=== PATIENT | male | born 1990 | race Caucasian/White ===

== ENCOUNTER 2019-03-04 20:59 | Emergency (ER) | payer OTHER ==
[~2019-03-04] VITALS: Ht 172.7 cm; Wt 81.6 kg
[2019-03-04 21:37] LABS: ABSOLUTE BASOPHILS 0.1 thou/uL (0.0-0.2); ABSOLUTE MONOCYTES 0.9 thou/uL (0.0-1.2); ABSOLUTE NEUTROPHILS 8.3 thou/uL (1.6-8.1); BASOPHILS 0.5 %; EOSINOPHILS 0.3 %; HEMATOCRIT 48.3 % (42.0-52.0); HEMOGLOBIN 16.6 gm/dL (14.0-18.0); LYMPHOCYTES 17.6 %; MCH 29.3 pg (26.0-34.0); MCHC 34.3 g/dL (28.0-37.0); MCV 85.5 fL (80.0-100.0); MONOCYTES 7.9 %; MPV 7.6 fl. (7.2-11.1); NUCLEATED RBCS 0 /100WBC; PLATELET COUNT* 293 thou/uL (150-400); POLYS 73.7 %; RBC 5.65 mil/uL (4.50-6.00); RDW-CV 13.3 % (10.5-14.5); WBC 11.3 thou/uL (4.0-11.0)
[2019-03-04 21:45] LABS: CALCIUM 9.9 mg/dL (8.5-10.1); POTASSIUM 3.4 mmol/L (3.5-5.1)
[2019-03-04 21:50] LABS: ALBUMIN 4.1 g/dL (3.4-5.0); TOTAL BILIRUBIN 1.1 mg/dL (<0.1-1.0); TOTAL PROTEIN 8.5 g/dL (6.4-8.2)
[2019-03-04 22:18] LABS: URINE BILIRUBIN NEGATIVE (Negative); URINE BLOOD NEGATIVE (Negative); URINE CLARITY CLEAR; URINE COLOR YELLOW; URINE GLUCOSE-RANDOM NEGATIVE (Negative); URINE KETONES NEGATIVE (Negative); URINE LEUKOCYTES-REFLEX NEGATIVE (Negative); URINE NITRITE-REFLEX NEGATIVE (Negative); URINE PROTEIN NEGATIVE (Negative); URINE UROBILINOGEN 0.2 E.U./dl (0.2-1.0)
[2019-03-04] MEDS ORDERED: NORCO 5-325 TA1 EAC1 PO (23:06)
[2019-03-04 23:51] VITALS: BP 137/94
== END 2019-03-04 23:51 | disposition home or self-care (01) ==
LOC: M.ERS 20:59
PROVIDERS: Nurse Practitioner Family
DX: R10.11 Right upper quadrant pain (principal); R11.2 Nausea with vomiting, unspecified; Z88.0 Allergy status to penicillin; Z88.8 Allergy status to other drugs, medicaments and biological substances